=== PATIENT | male | born 1975 | race Caucasian/White ===

== ENCOUNTER 2018-04-11 18:41 | Emergency (ER) | payer OTHER ==
[2018-04-11 19:46] LABS: Absolute Monocytes 0.5 K/uL (0.1-1.3); Absolute Neutrophil 4.7 K/uL (1.8-8.0); Eosinophils % 1.7 % (0-4.4); Hematocrit 45.6 % (39.6-49.0); Lymphocytes % 26.4 % (15.3-44.8); MCH 30.3 pg (27.0-35.0); MCV 86.5 fL (80-100); MPV 8.4 fL (7.6-11.3); Monocytes % 7.3 % (3.3-12.3); RBC Red Blood Cell Count 5.27 M/uL (4.33-5.43)
[2018-04-11 20:02] LABS: Albumin 4.2 g/dL (3.4-5.0); Bilirubin Direct 0.2 mg/dL (0-0.2); Bilirubin Total 0.6 mg/dL (0.2-1.0); Protein, Total 7.8 g/dL (6.4-8.2)
[2018-04-11] MEDS ORDERED: KETOROLAC 30 MG/ML INJ ONE (20:26)
[2018-04-11] MEDS ORDERED: NA CHLORIDE 0.9% 1,000 ML ONE (20:26)
--- NOTE | 2018-04-11 20:41 | RAD REPORT ---
EXAM DESCRIPTION: CTAbdomen Pelvis W Contrast - 04/11/2018 8:18 pm CLINICAL HISTORY: Abdominal pain. IV contrast only;Abd pain COMPARISON: No comparisons TECHNIQUE: Biphasic CT imaging of the abdomen and pelvis was performed with 100 ml non-ionic IV cont rast. All CT scans are performed using dose optimization technique as appropriate and may include automated exposure control or mA/KV adjustment according to patient size. FINDINGS: The lung bases are clear. The liver contains several low-density lesions, probably cysts but difficult to fully characterize. T he spleen, pancreas, adrenal glands and kidneys are within normal limits. No bowel obstruction, free air, free fluid or abscess. The appendix is normal. No evidence of signi ficant lymphadenopathy. No suspicious bony findings. IMPRESSION: No acute intra-abdominal or pelvic finding.
--- NOTE | 2018-04-11 20:59 | ER ---
Nurse's Notes [facility] Name: Jv Case Age: 42 yrs Sex: Male : 1975 Arrival Date: 04/11/2018 Time: 18:42 Bed 13 Private MD: Diagnosis: Upper abdominal pain, unspecified Presentation: 04/11 18:48 Presenting complaint: Patient states: Nausea, diarrhea, epigastric pain that wraps aj1 around to his back and into his right shoulder for the past 4 months, but it has gotten worse over the past 2 days. States that he had a HIDA scan done and it was negative. Denies vomiting, fever. Transition of care: patient was not received from another setting of care. Onset of symptoms was April 09, 2018. Risk Assessment: Do you want to hurt yourself or someone else? Patient reports no desire to harm self or others. Initial Sepsis Screen: Does the patient meet any 2 criteria? No. Patient's initial sepsis screen is negative. Does the patient have a suspected source of infection? Yes: Acute abdominal pain. Care prior to arrival: None. 18:48 Method Of Arrival: Ambulatory aj1 18:48 Acuity: MANUEL 3 aj1 Triage Assessment: 18:52 General: Appears in no apparent distress. uncomfortable, Behavior is calm, cooperative, aj1 appropriate for age. Pain: Complains of pain in diaphragm, right lateral anterior chest, epigastric area and right upper quadrant Pain currently is 7 out of 10 on a pain scale. Neuro: Level of Consciousness is awake, alert, obeys commands. Cardiovascular: Patient's skin is warm and dry. Respiratory: Airway is patent Respiratory effort is even, unlabored, Respiratory pattern is regular, symmetrical. Historical: - Allergies: 18:52 No Known Allergies; aj1 - Home Meds: 18:52 None [Active]; aj1 - PMHx: 18:52 None; aj1 - PSHx: 18:52 None; aj1 - Immunization history:: Flu vaccine is not up to date. - Social history:: Smoking status: Patient/guardian denies using tobacco. - Ebola Screening: : Patient denies travel to an Ebola-affected area in the 21 days before illness onset. Screenin:42 Abuse screen: Denies threats or abuse. Nutritional screening: No deficits noted. jb4 Tuberculosis screening: No symptoms or risk factors identified. Fall Risk None identified. Assessment: 19:42 General: Appears in no apparent distress. uncomfortable, Behavior is calm, cooperative, jb4 appropriate for age. Pain: Complains of pain in right upper quadrant Pain radiates to right mid back Pain currently is 7 out of 10 on a pain scale. Quality of pain is described as aching. Neuro: Level of Consciousness is awake, alert, obeys commands, Oriented to person, place, time, situation. Cardiovascular: Patient's skin is warm and dry. Respiratory: Airway is patent Respiratory effort is even, unlabored, Respiratory pattern is regular, symmetrical. GI: Bowel sounds present X 4 quads. Abd is soft X 4 quads Abd is non tender in right upper quadrant, left upper quadrant, right lower quadrant and left lower quadrant Abdomen is tender to palpation in epigastric area. : No signs and/or symptoms were reported regarding the genitourinary system. EENT: No signs and/or symptoms were reported regarding the EENT system. Derm: Skin is intact, Skin is pink, warm \T\ dry. Musculoskeletal: Circulation, motion, and sensation intact. 20:48 Reassessment: Patient appears in no apparent distress at this time. Patient and/or jb4 family updated on plan of care and expected duration. Pain level reassessed. Patient is alert, oriented x 3, equal unlabored respirations, skin warm/dry/pink. 21:20 Reassessment: Patient appears in no apparent distress at this time. Patient and/or jb4 family updated on plan of care and expected duration. Pain level reassessed. Patient is alert, oriented x 3, equal unlabored respirations, skin warm/dry/pink. Discussed D/c, F/u with pt, denies questions or concerns. Vital Signs: 18:52 BP 163 / 99; Pulse 96; Resp 18; Temp 97.7; Pulse Ox 96% on R/A; Weight 104.33 kg (R); aj1 Height 6 ft. 1 in. (185.42 cm) (R); 19:51 BP 146 / 96; Pulse 77; Resp 16; Pulse Ox 96% on R/A; Pain 7/10; jb4 20:48 BP 138 / 98; Pulse 70; Resp 16; Pulse Ox 96% on R/A; jb4 18:52 Body Mass Index 30.34 (104.33 kg, 185.42 cm) aj1 ED Course: 18:42 Patient arrived in ED. sb2 18:52 Triage completed. aj1 18:52 Arm band placed on. aj1 18:55 Angelia Hartman FNP-C is [facility]. kb 18:55 Papa Troy MD is Attending Physician. kb 19:35 Initial lab(s) drawn, by ms, sent to lab. Inserted saline lock: 22 gauge in left jb4 antecubital area, using aseptic technique. Blood collected. Missed attempt(s): 20 gauge in right antecubital area. 19:42 Lalo Goldsmith, RN is Primary Nurse. jb4 19:42 Patient has correct armband on for positive identification. Bed in low position. Call jb4 light in reach. Side rails up X 1. Pulse ox on. NIBP on. 20:18 CT Abd/Pelvis - W/Contrast In Process Unspecified. EDMS 21:20 No provider procedures requiring assistance completed. IV discontinued, intact, jb4 bleeding controlled. Administered Medications: 20:38 Drug: NS 0.9% 1000 ml Route: IV; Rate: 1000 ml; Site: left antecubital; jb4 21:20 Follow up: Response: No adverse reaction; IV Status: Completed infusion jb4 20:38 Drug: TORadol 30 mg Route: IVP; Site: left antecubital; jb4 21:20 Follow up: Response: No adverse reaction; Pain is decreased jb4 Outcome: 20:58 Discharge ordered by . kb 21:20 Discharged to home ambulatory. jb4 21:20 Condition: stable 21:20 Discharge instructions given to patient, family, Instructed on discharge instructions, follow up and referral plans. medication usage, Demonstrated understanding of instructions, follow-up care, medications, Prescriptions given X 2. 21:29 Patient left the ED. jb4 Signatures: Dispatcher [employer] EDMS Angelia Hartman FNP-C FNP-Ckb Johnson, Angela RN RN aj1 Lalo Goldsmith, RN RN jb4 Betty Carlson sb2
--- NOTE | 2018-04-11 21:00 | EDPHYS ---
Physician Documentation [facility] Name: Jv Case Age: 42 yrs Sex: Male : 1975 Arrival Date: 04/11/2018 Time: 18:42 Bed 13 Private MD: ED Physician Papa Troy HPI: 04/11 19:46 This 42 yrs old Male presents to ER via Ambulatory with complaints of kb Abdominal Pain. 19:46 The patient presents with abdominal pain in the epigastric area, in the right upper kb quadrant. Onset: The symptoms/episode began/occurred yesterday. The symptoms radiate to right back, the right shoulder. Associated signs and symptoms: Pertinent positives: diarrhea. The symptoms are described as waxing/waning. Modifying factors: The symptoms are alleviated by nothing, the symptoms are aggravated by food. Severity of pain: At its worst the pain was severe in the emergency department the pain has improved moderately. The patient has experienced similar episodes in the past, several times. The patient has not recently seen a physician. Historical: - Allergies: 18:52 No Known Allergies; aj1 - Home Meds: 18:52 None [Active]; aj1 - PMHx: 18:52 None; aj1 - PSHx: 18:52 None; aj1 - Immunization history:: Flu vaccine is not up to date. - Social history:: Smoking status: Patient/guardian denies using tobacco. - Ebola Screening: : Patient denies travel to an Ebola-affected area in the 21 days before illness onset. ROS: 19:45 Constitutional: Negative for fever, chills, and weight loss, Cardiovascular: Negative kb for chest pain, palpitations, and edema, Respiratory: Negative for shortness of breath, cough, wheezing, and pleuritic chest pain, Back: Negative for injury and pain, : Negative for injury, bleeding, discharge, and swelling, MS/Extremity: Negative for injury and deformity, Skin: Negative for injury, rash, and discoloration, Neuro: Negative for headache, weakness, numbness, tingling, and seizure. 19:45 Abdomen/GI: Positive for abdominal pain, diarrhea, Negative for nausea and vomiting. Exam: 19:45 Constitutional: This is a well developed, well nourished patient who is awake, alert, kb and in no acute distress. Head/Face: Normocephalic, atraumatic. ENT: Nares patent. No nasal discharge, no septal abnormalities noted. Tympanic membranes are normal and external auditory canals are clear. Oropharynx with no redness, swelling, or masses, exudates, or evidence of obstruction, uvula midline. Mucous membranes moist. Neck: Trachea midline, no thyromegaly or masses palpated, and no cervical lymphadenopathy. Supple, full range of motion without nuchal rigidity, or vertebral point tenderness. No Meningismus. Chest/axilla: Normal chest wall appearance and motion. Nontender with no deformity. No lesions are appreciated. Cardiovascular: Regular rate and rhythm with a normal S1 and S2. No gallops, murmurs, or rubs. Normal PMI, no JVD. No pulse deficits. Respiratory: Lungs have equal breath sounds bilaterally, clear to auscultation and percussion. No rales, rhonchi or wheezes noted. No increased work of breathing, no retractions or nasal flaring. Back: No spinal tenderness. No costovertebral tenderness. Full range of motion. Skin: Warm, dry with normal turgor. Normal color with no rashes, no lesions, and no evidence of cellulitis. MS/ Extremity: Pulses equal, no cyanosis. Neurovascular intact. Full, normal range of motion. Neuro: Awake and alert, GCS 15, oriented to person, place, time, and situation. Cranial nerves II-XII grossly intact. Motor strength 5/5 in all extremities. Sensory grossly intact. Cerebellar exam normal. Normal gait. 19:45 Abdomen/GI: Inspection: abdomen appears normal, Bowel sounds: normal, in all quadrants, Palpation: soft, in all quadrants, mild abdominal tenderness, in the epigastric area. Vital Signs: 18:52 BP 163 / 99; Pulse 96; Resp 18; Temp 97.7; Pulse Ox 96% on R/A; Weight 104.33 kg (R); aj1 Height 6 ft. 1 in. (185.42 cm) (R); 19:51 BP 146 / 96; Pulse 77; Resp 16; Pulse Ox 96% on R/A; Pain 7/10; jb4 20:48 BP 138 / 98; Pulse 70; Resp 16; Pulse Ox 96% on R/A; jb4 18:52 Body Mass Index 30.34 (104.33 kg, 185.42 cm) aj1 MDM: 18:56 Patient medically screened. kb 19:45 Data reviewed: vital signs, nurses notes. Data interpreted: Pulse oximetry: on room air kb is 96 %. Interpretation: normal. 20:47 Counseling: I had a detailed discussion with the patient and/or guardian regarding: the kb historical points, exam findings, and any diagnostic results supporting the discharge/admit diagnosis, lab results, radiology results, the need for outpatient follow up, a family practitioner, a clay preparation supervisor, to return to the emergency department if symptoms worsen or persist or if there are any questions or concerns that arise at home. 04/11 19:10 Order name: Basic Metabolic Panel; Complete Time: 20:06 [email or web address] 04/11 19:10 Order name: CBC with Diff; Complete Time: 19:48 [email or web address] 04/11 19:10 Order name: Hepatic Function; Complete Time: 20:06 [email or web address] 04/11 19:10 Order name: Lipase; Complete Time: 20:06 [email or web address] 04/11 19:58 Order name: CT Abd/Pelvis - W/Contrast; Complete Time: 20:47 kb 04/11 19:10 Order name: IV Saline Lock; Complete Time: 19:42 [email or web address] 04/11 19:10 Order name: Labs collected and sent; Complete Time: 19:42 ak Administered Medications: 20:38 Drug: NS 0.9% 1000 ml Route: IV; Rate: 1000 ml; Site: left antecubital; [facility] 21:20 Follow up: Response: No adverse reaction; IV Status: Completed infusion jb4 20:38 Drug: TORadol 30 mg Route: IVP; Site: left antecubital; 4 21:20 Follow up: Response: No adverse reaction; Pain is decreased jb4 Disposition: 04/11/18 20:58 Discharged to Home. Impression: Upper abdominal pain, unspecified. - Condition is Stable. - Discharge Instructions: Abdominal Pain, Adult, Lgaw-we-Fiss. - Prescriptions for Bentyl 20 mg Oral Tablet - take 1 tablet by ORAL route every 6 hours As needed; 20 tablet. Zofran 4 mg Oral Tablet - take 1 tablet by ORAL route every 6 hours As needed; 20 tablet. - Medication Reconciliation Form, Thank You Letter, Antibiotic Education, Prescription Opioid Use form. - Follow up: Emergency Department; When: As needed; Reason: Worsening of condition. Follow up: Private Physician; When: 2 - 3 days; Reason: Recheck today's complaints, Continuance of care, Re-evaluation by your physician. Addendum: 04/16/2018 08:05 Co-signature as Attending Physician, Papa Troy MD I agree with the assessment and c onofre plan of care. Signatures: Dispatcher [employer] EDMS Angelia Hartman, BEDSPREAD INSPECTOR-C BEDSPREAD INSPECTOR-Ckb Mariah Gale, RN RN aj1 Papa Troy MD MD cha Krenek, Amber RN RN ak1 Lalo Goldsmith RN RN jb4 Corrections: (The following items were deleted from the chart) 04/11 21:29 20:58 04/11/2018 20:58 Discharged to Home. Impression: Upper abdominal pain, jb4 unspecified. Condition is Stable. Forms are Medication Reconciliation Form, Thank You Letter, Antibiotic Education, Prescription Opioid Use. Follow up: Emergency Department; When: As needed; Reason: Worsening of condition. Follow up: Private Physician; When: 2 - 3 days; Reason: Recheck today's complaints, Continuance of care, Re-evaluation by your physician. kb
== END 2018-04-11 21:29 | disposition home or self-care (01) ==
LOC: ER 18:41
DX: R10.10 Upper abdominal pain, unspecified (principal)
CPT/HCPCS: 36415; 74177; 80048; 80076; 83690; 85025; 96361; 96374; 99284; J7030; Q9967

== ENCOUNTER 2018-09-16 19:07 | Emergency (ER) | payer OTHER ==
[2018-09-16] MEDS ORDERED: AZITHROMYCIN 250 MG TAB ONE (19:57)
--- NOTE | 2018-09-16 19:57 | ER ---
Nurse's Notes [facility] Name: Jv Case Age: 42 yrs Sex: Male : 1975 Arrival Date: 09/16/2018 Time: 19:08 Bed 24 Private MD: Will Rajput R Diagnosis: Fever, unspecified;Malaise and fatigue;Acute pharyngitis;Streptococcal tonsillitis;Streptococcal pharyngitis Presentation: 09/16 19:13 Presenting complaint: Patient states: I have been having body aches, a sore throat, and la1 chills and a sore throat since last night. Transition of care: patient was not received from another setting of care. Onset of symptoms was September 16, 2018. Risk Assessment: Do you want to hurt yourself or someone else? Patient reports no desire to harm self or others. Initial Sepsis Screen: Does the patient meet any 2 criteria? No. Patient's initial sepsis screen is negative. Does the patient have a suspected source of infection? No. Patient's initial sepsis screen is negative. Care prior to arrival: None. 19:13 Method Of Arrival: Ambulatory la1 19:13 Acuity: MANUEL 4 la1 Historical: - Allergies: 19:13 No Known Allergies; la1 - PMHx: 19:13 None; la1 - Immunization history:: Adult Immunizations up to date. - Social history:: Smoking status: Patient/guardian denies using tobacco. - Ebola Screening: : No symptoms or risks identified at this time. - Family history:: not pertinent. Screenin:18 Abuse screen: Denies threats or abuse. Denies injuries from another. Nutritional mg2 screening: No deficits noted. Tuberculosis screening: No symptoms or risk factors identified. Fall Risk None identified. Assessment: 19:24 General: Appears in no apparent distress. comfortable, Behavior is calm, cooperative. mg2 Pain: Complains of pain in throat Pain does not radiate. Pain currently is 4 out of 10 on a pain scale. Quality of pain is described as aching, Pain began gradually, last night Is intermittent. Neuro: Level of Consciousness is awake, alert, obeys commands, Oriented to person, place, time, situation. Neuro: Reports headache in entire. Cardiovascular: Capillary refill < 3 seconds Patient's skin is warm and dry. Respiratory: Airway is patent Respiratory effort is even, unlabored, Breath sounds are clear. GI: No deficits noted. : No deficits noted. EENT: Throat is reddened. Derm: Skin is intact, is healthy with good turgor, Skin is pink, warm \T\ dry. normal. Musculoskeletal: Circulation, motion, and sensation intact. Capillary refill < 3 seconds. Vital Signs: 19:14 BP 150 / 100; Pulse 92; Resp 16; Temp 99.8; Pulse Ox 98% on R/A; Weight 102.06 kg; la1 Height 6 ft. 1 in. (185.42 cm); 19:27 Temp 98.5(O); mg2 20:22 BP 140 / 92; Pulse 90; Resp 18; Pulse Ox 100% on R/A; mg2 19:14 Body Mass Index 29.68 (102.06 kg, 185.42 cm) la1 ED Course: 19:08 Patient arrived in ED. am2 19:08 Will Rajput MD is Private Physician. am2 19:13 Triage completed. la1 19:14 Arm band placed on right wrist. la1 19:15 Miles Galvez, LOY is Primary Nurse. mg2 19:15 Papa Troy MD is Attending Physician. armando 19:18 Patient has correct armband on for positive identification. Bed in low position. Call mg2 light in reach. Side rails up X 1. Pulse ox on. NIBP on. 19:19 No provider procedures requiring assistance completed. mg2 19:56 Will Rajput MD is Referral Physician. armando 20:22 Patient did not have IV access during this emergency room visit. mg2 Administered Medications: 19:48 Drug: Motrin 600 mg Route: PO; mg2 20:22 Follow up: Response: No adverse reaction; Marked relief of symptoms mg2 19:48 Drug: Zithromax 500 mg Route: PO; mg2 20:21 Follow up: Response: No adverse reaction mg2 Outcome: 19:56 Discharge ordered by . armando 20:22 Discharged to home ambulatory. mg2 20:22 Condition: stable 20:22 Discharge instructions given to patient, Instructed on discharge instructions, follow up and referral plans. medication usage, Demonstrated understanding of instructions, follow-up care, medications, Prescriptions given X 1. 20:23 Patient left the ED. mg2 Signatures: Papa Troy MD MD cha Attema Marvin, RN RN la1 Alize Palma am2 Miles Galvez, RN RN mg2
--- NOTE | 2018-09-16 19:57 | EDPHYS ---
Physician Documentation [facility] Name: Jv Case Age: 42 yrs Sex: Male : 1975 Arrival Date: 09/16/2018 Time: 19:08 Bed 24 Private MD: Will Rajput R ED Physician Papa Troy HPI: 09/16 19:40 This 42 yrs old Male presents to ER via Ambulatory with complaints of Cold armando sweats, Sore Throat, Headache. 19:40 The patient presents with sore throat. The patient describes throat pain as burning. armando Onset: The symptoms/episode began/occurred today. Severity of symptoms: At their worst the symptoms were mild, in the emergency department the symptoms are unchanged. Modifying factors: The symptoms are alleviated by nothing, the symptoms are aggravated by nothing. Associated signs and symptoms: The patient has no apparent associated signs or symptoms. The patient has not experienced similar symptoms in the past. Historical: - Allergies: 19:13 No Known Allergies; la1 - PMHx: 19:13 None; la1 - Immunization history:: Adult Immunizations up to date. - Social history:: Smoking status: Patient/guardian denies using tobacco. - Ebola Screening: : No symptoms or risks identified at this time. - Family history:: not pertinent. ROS: 19:40 Constitutional: Negative for fever, chills, and weight loss, Eyes: Negative for injury, armando pain, redness, and discharge, Neck: Negative for injury, pain, and swelling, Cardiovascular: Negative for chest pain, palpitations, and edema, Respiratory: Negative for shortness of breath, cough, wheezing, and pleuritic chest pain, Abdomen/GI: Negative for abdominal pain, nausea, vomiting, diarrhea, and constipation, Back: Negative for injury and pain, : Negative for injury, bleeding, discharge, and swelling, MS/Extremity: Negative for injury and deformity, Skin: Negative for injury, rash, and discoloration, Neuro: Negative for headache, weakness, numbness, tingling, and seizure, Psych: Negative for depression, anxiety, suicide ideation, homicidal ideation, and hallucinations, Allergy/Immunology: Negative for hives, rash, and allergies, Endocrine: Negative for neck swelling, polydipsia, polyuria, polyphagia, and marked weight changes, Hematologic/Lymphatic: Negative for swollen nodes, abnormal bleeding, and unusual bruising. 19:40 Constitutional: Positive for fever, malaise. 19:40 ENT: Positive for difficulty swallowing, sinus pain. Exam: 19:40 Constitutional: This is a well developed, well nourished patient who is awake, alert, armando and in no acute distress. Head/Face: Normocephalic, atraumatic. Eyes: Pupils equal round and reactive to light, extra-ocular motions intact. Lids and lashes normal. Conjunctiva and sclera are non-icteric and not injected. Cornea within normal limits. Periorbital areas with no swelling, redness, or edema. Neck: Trachea midline, no thyromegaly or masses palpated, and no cervical lymphadenopathy. Supple, full range of motion without nuchal rigidity, or vertebral point tenderness. No Meningismus. Chest/axilla: Normal chest wall appearance and motion. Nontender with no deformity. No lesions are appreciated. Cardiovascular: Regular rate and rhythm with a normal S1 and S2. No gallops, murmurs, or rubs. Normal PMI, no JVD. No pulse deficits. Respiratory: Lungs have equal breath sounds bilaterally, clear to auscultation and percussion. No rales, rhonchi or wheezes noted. No increased work of breathing, no retractions or nasal flaring. Abdomen/GI: Soft, non-tender, with normal bowel sounds. No distension or tympany. No guarding or rebound. No evidence of tenderness throughout. Back: No spinal tenderness. No costovertebral tenderness. Full range of motion. Male : Normal genitalia with no discharge or lesions. Skin: Warm, dry with normal turgor. Normal color with no rashes, no lesions, and no evidence of cellulitis. MS/ Extremity: Pulses equal, no cyanosis. Neurovascular intact. Full, normal range of motion. Neuro: Awake and alert, GCS 15, oriented to person, place, time, and situation. Cranial nerves II-XII grossly intact. Motor strength 5/5 in all extremities. Sensory grossly intact. Cerebellar exam normal. Normal gait. Psych: Awake, alert, with orientation to person, place and time. Behavior, mood, and affect are within normal limits. 19:40 ENT: Posterior pharynx: Airway: normal, no evidence of obstruction, Tonsils: with erythema, Uvula: normal, swelling, is not appreciated, erythema, is not appreciated, that is mild. Vital Signs: 19:14 BP 150 / 100; Pulse 92; Resp 16; Temp 99.8; Pulse Ox 98% on R/A; Weight 102.06 kg; la1 Height 6 ft. 1 in. (185.42 cm); 19:27 Temp 98.5(O); mg2 20:22 BP 140 / 92; Pulse 90; Resp 18; Pulse Ox 100% on R/A; mg2 19:14 Body Mass Index 29.68 (102.06 kg, 185.42 cm) la1 MDM: 19:15 Patient medically screened. [facility] 19:45 Data reviewed: vital signs, nurses notes, lab test result(s). [facility] 09/16 19:24 Order name: Strep; Complete Time: 19:55 mg2 09/16 19:26 Order name: Flu; Complete Time: 19:55 mg2 Administered Medications: 19:48 Drug: Motrin 600 mg Route: PO; mg2 20:22 Follow up: Response: No adverse reaction; Marked relief of symptoms mg2 19:48 Drug: Zithromax 500 mg Route: PO; mg2 20:21 Follow up: Response: No adverse reaction mg2 Disposition: 09/16/18 19:56 Discharged to Home. Impression: Fever, unspecified, Malaise and fatigue, Acute pharyngitis, Streptococcal tonsillitis, Streptococcal pharyngitis. - Condition is Stable. - Discharge Instructions: Fever, Adult, Pharyngitis, Strep Throat, Weakness, Pharyngitis, [id number]-qc-[id number], Weakness, Xudu-oa-Vkqv, Sore Throat, Ojxs-ff-Npkw. - Prescriptions for Zithromax 500 mg Oral Tablet - take 1 tablet by ORAL route once daily for 4 days; 4 tablet. - Medication Reconciliation Form, Thank You Letter, Antibiotic Education, Prescription Opioid Use, Work release form form. - Follow up: Will Rajput; When: 2 - 3 days; Reason: Recheck today's complaints, Continuance of care, Re-evaluation by your physician. - Problem is new. - Symptoms have improved. Signatures: Dispatcher [employer] EDMS Papa Troy MD MD cha Attema, Lee RN RN la1 Miles Galvez RN RN mg2 Corrections: (The following items were deleted from the chart) 20:23 19:56 09/16/2018 19:56 Discharged to Home. Impression: Fever, unspecified; Malaise and mg2 fatigue; Acute pharyngitis; Streptococcal tonsillitis; Streptococcal pharyngitis. Condition is Stable. Discharge Instructions: Fever, Adult, Pharyngitis, Weakness, Pharyngitis, Vzkt-yc-Lwlw, Weakness, Owpd-gr-Nihl, Sore Throat, Noyk-lu-Vamd. Prescriptions for Zithromax 500 mg Oral Tablet - take 1 tablet by ORAL route once daily for 4 days; 4 tablet. and Forms are Medication Reconciliation Form, Thank You Letter, Antibiotic Education, Prescription Opioid Use. Follow up: Will Rajput; When: 2 - 3 days; Reason: Recheck today's complaints, Continuance of care, Re-evaluation by your physician. Problem is new. Symptoms have improved. armando
[2018-09-16] MEDS ORDERED: IBUPROFEN 200 MG TAB PO ONE (19:58)
== END 2018-09-16 20:23 | disposition home or self-care (01) ==
LOC: ER 19:07
DX: J03.00 Acute streptococcal tonsillitis, unspecified (principal); R53.81 Other malaise; R53.83 Other fatigue
CPT/HCPCS: 87081; 87804

== ENCOUNTER 2018-11-16 21:18 | Emergency (ER) | payer OTHER ==
[2018-11-16] MEDS ORDERED: KETOROLAC 30 MG/ML INJ ONE (22:15)
[2018-11-16 22:23] LABS: Absolute Lymphocytes (CBC) 1.8 K/uL (0.7-4.9); Eosinophils % 2.5 % (0-4.4); Hematocrit 44.1 % (39.6-49.0); Lymphocytes % 30.6 % (15.3-44.8); MPV 8.6 fL (7.6-11.3); Monocytes % 7.3 % (3.3-12.3); RBC Red Blood Cell Count 5.04 M/uL (4.33-5.43)
[2018-11-16 22:38] LABS: Bilirubin Total 0.6 mg/dL (0.2-1.0); Potassium 3.7 mmol/L (3.5-5.1); Protein, Total 7.4 g/dL (6.4-8.2)
--- NOTE | 2018-11-16 22:38 | RAD REPORT ---
EXAM DESCRIPTION: US - Abdomen Exam Limited - 11/16/2018 10:19 pm CLINICAL HISTORY: Abdominal pain. COMPARISON: 07/2017 FINDINGS: The patient had recently eaten limiting evaluation. Gallbladder is contracted. A gallstone is not visualized The biliary tree is normal caliber. IMPRESSION: Grossly normal gallbladder ultrasound
--- NOTE | 2018-11-17 00:28 | ER ---
Nurse's Notes [facility] Name: Jv Case Age: 43 yrs Sex: Male : 1975 Arrival Date: 11/16/2018 Time: 21:20 Bed 6 Private MD: Will Rajput R Diagnosis: Abdominal pain Presentation: 11/16 21:35 Presenting complaint: Patient states: epigastric pain on right side that radiates to tl2 back x 3 days, gets worse after eating. Had similar episode last year, diagnosed with "fatty gallbladder" by Dr. Cantu. Transition of care: patient was not received from another setting of care. Onset of symptoms was November 13, 2018. Risk Assessment: Do you want to hurt yourself or someone else? Patient reports no desire to harm self or others. Initial Sepsis Screen: Does the patient meet any 2 criteria? No. Patient's initial sepsis screen is negative. Does the patient have a suspected source of infection? No. Patient's initial sepsis screen is negative. Care prior to arrival: None. 21:35 Method Of Arrival: Ambulatory tl2 21:35 Acuity: MANUEL 3 tl2 Triage Assessment: 21:36 General: Appears in no apparent distress. uncomfortable, Behavior is calm, cooperative, tl2 appropriate for age. Pain: Complains of pain in epigastric area Pain radiates to anterior aspect of right lateral abdomen. Neuro: Level of Consciousness is awake, alert, obeys commands, Oriented to person, place, time, situation. Cardiovascular: Denies chest pain. Respiratory: Airway is patent Respiratory effort is even, unlabored, Respiratory pattern is regular, symmetrical. GI: Abd is soft Abdomen is tender to palpation in right upper quadrant Reports upper abdominal pain. Derm: Skin is pink, warm \\T\\ dry. Historical: - Allergies: 21:36 No Known Allergies; tl2 - Home Meds: 21:36 None [Active]; tl2 - PMHx: 21:36 None; tl2 - PSHx: 21:36 None; tl2 - Immunization history:: Adult Immunizations up to date. - Social history:: Smoking status: Patient/guardian denies using tobacco. - Ebola Screening: : No symptoms or risks identified at this time. Screenin:38 Abuse screen: Denies threats or abuse. Nutritional screening: No deficits noted. tl2 Tuberculosis screening: No symptoms or risk factors identified. Fall Risk None identified. Assessment: 21:38 General: see triage assessment. tl2 22:30 Reassessment: Patient appears in no apparent distress at this time. Patient and/or tl2 family updated on plan of care and expected duration. Pain level reassessed. Patient is alert, oriented x 3, equal unlabored respirations, skin warm/dry/pink. pt states pain has improved. 11/17 00:00 Reassessment: Patient appears in no apparent distress at this time. Patient and/or tl2 family updated on plan of care and expected duration. Pain level reassessed. Patient is alert, oriented x 3, equal unlabored respirations, skin warm/dry/pink. 00:59 Reassessment: Patient appears in no apparent distress at this time. Patient and/or tl2 family updated on plan of care and expected duration. Pain level reassessed. Patient is alert, oriented x 3, equal unlabored respirations, skin warm/dry/pink. pt verbalized understanding of discharge instructions, need for follow up and prescription usage Patient states feeling better. Vital Signs: 11/16 21:30 BP 146 / 100; Pulse 80; Temp 98.0; Pulse Ox 99% ; Weight 104.33 kg (R); Height 6 ft. 1 jp3 in. (185.42 cm) (R); Pain 4/10; 22:22 BP 135 / 100; Pulse 69; Resp 18; Pulse Ox 98% on R/A; tl2 11/17 00:59 BP 137 / 103; Pulse 70; Resp 18; Pulse Ox 97% on R/A; Pain 1/10; tl2 11/16 21:30 Body Mass Index 30.34 (104.33 kg, 185.42 cm) jp3 ED Course: 11/16 21:20 Patient arrived in ED. as 21:21 Will Rajput MD is Private Physician. as 21:22 Brad Villafuerte MD is Attending Physician. ps1 21:32 Bed in low position. Call light in reach. Side rails up X 1. Verbal reassurance given. jp3 Pulse ox on. NIBP on. 21:36 Triage completed. tl2 21:36 Arm band placed on right wrist. tl2 21:50 Inserted saline lock: 20 gauge in right antecubital area, using aseptic technique. tl2 Blood collected. 22:18 US Abdomen Limited In Process Unspecified. EDMS 22:20 Ultrasound completed. Patient tolerated well. sg3 22:22 Mally Rosenberg, RN is Primary Nurse. tl2 11/17 00:08 CT Abd/Pelvis - Without Contrast In Process Unspecified. EDMS 00:25 Will Rajput MD is Referral Physician. ps1 00:59 No provider procedures requiring assistance completed. IV discontinued, intact, tl2 bleeding controlled, No redness/swelling at site. Pressure dressing applied. Administered Medications: 11/16 22:10 Drug: TORadol 30 mg Route: IVP; Site: right antecubital; tl2 23:00 Follow up: Response: No adverse reaction; Pain is decreased tl2 11/17 00:46 Drug: GI Cocktail without - (Maalox Suspension 30 ml, Lidocaine Liquid 2 % 15 tl2 ml) Route: PO; 01:00 Follow up: Response: No adverse reaction tl2 Outcome: 00:25 Discharge ordered by MD. ps1 00:59 Discharged to home ambulatory. tl2 00:59 Condition: stable 00:59 Discharge instructions given to patient, Instructed on discharge instructions, follow up and referral plans. medication usage, Demonstrated understanding of instructions, follow-up care, medications, Prescriptions given X 4. 01:00 Patient left the ED. tl2 Signatures: Dispatcher [employer] NATHANMS Luisa Pardo Taylor, RN RN tl2 Brad Villafuerte MD MD ps1 Kortney Mitchell sg3 Tesfaye Somers 3
--- NOTE | 2018-11-17 00:29 | EDPHYS ---
Physician Documentation [facility] Name: Jv Case Age: 43 yrs Sex: Male : 1975 Arrival Date: 11/16/2018 Time: 21:20 Bed 6 Private MD: Will Rajput R ED Physician Brad Villafuerte HPI: 11/17 00:22 This 43 yrs old Male presents to ER via Ambulatory with complaints of ps1 Epigastric Pain, Back Pain. 00:22 patient states that he has had RUQ/flank pain for two weeks. Tonight he ate some ps1 chickfila and his pain got worse. Pain rated as moderate. No fever. No medical history otherwise. No urinary symptoms. Historical: - Allergies: 11/16 21:36 No Known Allergies; tl2 - Home Meds: 21:36 None [Active]; tl2 - PMHx: 21:36 None; tl2 - PSHx: 21:36 None; tl2 - Immunization history:: Adult Immunizations up to date. - Social history:: Smoking status: Patient/guardian denies using tobacco. - Ebola Screening: : No symptoms or risks identified at this time. ROS: 11/17 00:22 Constitutional: Negative for fever, chills, and weight loss, Eyes: Negative for injury, ps1 pain, redness, and discharge, ENT: Negative for injury, pain, and discharge, Cardiovascular: Negative for chest pain, palpitations, and edema, Respiratory: Negative for shortness of breath, cough, wheezing, and pleuritic chest pain, MS/Extremity: Negative for injury and deformity, Skin: Negative for injury, rash, and discoloration, Neuro: Negative for headache, weakness, numbness, tingling, and seizure. Abdomen/GI: Positive for abdominal pain. Exam: 00:22 Constitutional: This is a well developed, well nourished patient who is awake, alert, ps1 and in no acute distress. Head/Face: Normocephalic, atraumatic. Eyes: Pupils equal round and reactive to light, extra-ocular motions intact. Lids and lashes normal. Conjunctiva and sclera are non-icteric and not injected. Chest/axilla: Normal chest wall appearance and motion. Nontender with no deformity. No lesions are appreciated. Cardiovascular: Regular rate and rhythm. No gallops, murmurs, or rubs. Normal PMI, no JVD. No pulse deficits. Respiratory: Lungs have equal breath sounds bilaterally, clear to auscultation and percussion. No rales, rhonchi or wheezes noted. No increased work of breathing, no retractions or nasal flaring. Skin: Warm, dry with normal turgor. Normal color with no rashes, no lesions, and no evidence of cellulitis. MS/ Extremity: Pulses equal, no cyanosis. Neurovascular intact. Full, normal range of motion. Neuro: Awake and alert, GCS 15, oriented to person, place, time, and situation. Cranial nerves II-XII grossly intact. Sensory grossly intact. 00:22 Abdomen/GI: Inspection: abdomen appears normal, Bowel sounds: normal, Palpation: moderate abdominal tenderness, in the right upper quadrant. Vital Signs: 11/16 21:30 BP 146 / 100; Pulse 80; Temp 98.0; Pulse Ox 99% ; Weight 104.33 kg (R); Height 6 ft. 1 jp3 in. (185.42 cm) (R); Pain 4/10; 22:22 BP 135 / 100; Pulse 69; Resp 18; Pulse Ox 98% on R/A; tl2 11/17 00:59 BP 137 / 103; Pulse 70; Resp 18; Pulse Ox 97% on R/A; Pain 1/10; tl2 11/16 21:30 Body Mass Index 30.34 (104.33 kg, 185.42 cm) jp3 MDM: 11/16 21:38 Patient medically screened. ps1 11/17 00:24 Data reviewed: vital signs, nurses notes, lab test result(s), radiologic studies, and ps1 as a result, I will discharge patient. Counseling: I had a detailed discussion with the patient and/or guardian regarding: the historical points, exam findings, and any diagnostic results supporting the discharge/admit diagnosis, lab results, radiology results, the need for outpatient follow up. Counseling: I had a detailed discussion with the patient and/or guardian regarding: to return to the emergency department if symptoms worsen or persist or if there are any questions or concerns that arise at home. Medical screen evaluation completed. [facility] emergency medical condition absent. 11/16 21:33 Order name: CBC with Diff; Complete Time: 23:13 ps1 11/16 21:33 Order name: Creatinine for Radiology; Complete Time: 23:13 [facility] 11/16 21:33 Order name: Lipase; Complete Time: 23:13 [facility] 11/16 21:33 Order name: CMP; Complete Time: 23:13 [facility] 11/16 21:33 Order name: US Abdomen Limited; Complete Time: 23:13 [facility] 11/16 23:05 Order name: Urine Dipstick--Ancillary (enter results) [facility] 11/16 21:33 Order name: IV Saline Lock; Complete Time: 21:51 [facility] 11/16 21:33 Order name: Labs collected and sent; Complete Time: 21:51 [facility] 11/16 21:33 Order name: Urine Dipstick-Ancillary (obtain specimen); Complete Time: 23:11 [facility] 11/16 23:15 Order name: CT Abd/Pelvis - Without Contrast ps1 Administered Medications: 11/16 22:10 Drug: TORadol 30 mg Route: IVP; Site: right antecubital; tl2 23:00 Follow up: Response: No adverse reaction; Pain is decreased tl2 11/17 00:46 Drug: GI Cocktail without - (Maalox Suspension 30 ml, Lidocaine Liquid 2 % 15 tl2 ml) Route: PO; 01:00 Follow up: Response: No adverse reaction tl2 Disposition: 11/17/18 00:25 Discharged to Home. Impression: Abdominal pain. - Condition is Stable. - Discharge Instructions: Abdominal Pain, Adult. - Prescriptions for Bentyl 10 mg Oral Capsule - take 1 capsule by ORAL route every 6 hours As needed; 40 capsule. Carafate 1 gram Oral Tablet - take 1 tablet by ORAL route 4 times per day take on an empty stomach, beginning on waking and last dose at bedtime; 100 tablet. Protonix 40 mg Oral Tablet - take 1 tablet by ORAL route once daily; 30 tablet. Zofran 4 mg Oral Tablet - take 1 tablet by ORAL route every 12 hours As needed; 20 tablet. - Medication Reconciliation Form, Thank You Letter, Antibiotic Education, Prescription Opioid Use form. - Follow up: Will Rajput MD; When: As needed; Reason: Further diagnostic work-up, Recheck today's complaints, Re-evaluation by your physician. Follow up: Emergency Department; When: As needed; Reason: Fever > 102 F, Worsening of condition. - Problem is new. - Symptoms are unchanged. Signatures: Dispatcher [employer] EDMD Mally Rosenberg RN RN tl2 Brad Villafuerte MD MD ps1 Corrections: (The following items were deleted from the chart) 00:25 00:25 11/17/2018 00:25 Discharged to Home. Impression: Abdominal pain. Condition is ps1 Stable. Forms are Medication Reconciliation Form, Thank You Letter, Antibiotic Education, Prescription Opioid Use. Follow up: Will Rajput; When: As needed; Reason: Further diagnostic work-up, Recheck today's complaints, Re-evaluation by your physician. Follow up: Emergency Department; When: As needed; Reason: Fever > 102 F, Worsening of condition. ps1 01:00 00:25 11/17/2018 00:25 Discharged to Home. Impression: Abdominal pain. Condition is tl2 Stable. Forms are Medication Reconciliation Form, Thank You Letter, Antibiotic Education, Prescription Opioid Use. Follow up: Will Rajput; When: As needed; Reason: Further diagnostic work-up, Recheck today's complaints, Re-evaluation by your physician. Follow up: Emergency Department; When: As needed; Reason: Fever > 102 F, Worsening of condition. Problem is new. Symptoms are unchanged. ps1
[2018-11-17] MEDS ORDERED: LIDOCAINE VISCOUS 2% SOLN 15 ML UDC ONE (00:49)
[2018-11-17] MEDS ORDERED: MAGNE/ALUM HYDROXD 30 ML UCUP ONE (00:49)
[2018-11-17 01:17] LABS: Urine Blood NEGATIVE (NEG); Urine Glucose NEGATIVE (NEG); Urine Protein TRACE (NEG); Urine Specific Gravity 1.025 (1.005-1.030)
--- NOTE | 2018-11-19 13:27 | RAD REPORT ---
EXAM DESCRIPTION: CT - Abdomen Pelvis Wo Contrast - 11/17/2018 2:10 am CLINICAL HISTORY: The patient is 43 years old and is Male; Right flank pain. TECHNIQUE: Axial computed tomography images of the abdomen and pelvis without intravenous contrast. Sagittal and coronal reformatted images were created and reviewed. This CT exam was performed usi ng one or more of the following dose reduction techniques: automated exposure control, adjustment o f the mA and/or kV according to patient size, and/or use of iterative reconstruction technique. COMPARISON: CT abdomen and pelvis with contrast dated April 11, 2018. FINDINGS: LUNG BASES: Calcified 7 mm right middle lobe nodule, unchanged from prior exam. ABDOMEN: LIVER: Subcentimeter hepatic dome cysts. GALLBLADDER AND BILE DUCTS: Unremarkable. No calcified stones. No ductal dilation. PANCREAS: Unremarkable. No ductal dilation. SPLEEN: Mild splenomegaly measuring 14.6 cm. ADRENALS: Unremarkable. No mass. KIDNEYS AND URETERS: Unremarkable. No obstructing stones. No hydronephrosis. STOMACH AND BOWEL: Unremarkable. No obstruction. No mucosal thickening. PELVIS: APPENDIX: The appendix is seen and is within normal limits. BLADDER: Bladder is decompressed. No stones. REPRODUCTIVE: Unremarkable as visualized. ABDOMEN and PELVIS: INTRAPERITONEAL SPACE: Unremarkable. No free air. No significant fluid collection. BONES/JOINTS: No acute fracture. No dislocation. SOFT TISSUES: Unremarkable. VASCULATURE: Unremarkable. No abdominal aortic aneurysm. LYMPH NODES: Unremarkable. No enlarged lymph nodes. IMPRESSION: 1. No acute abdominal or pelvic abnormality. No obstructive uropathy. 2. Mild splenomegaly measuring 14.6 cm. Electronically signed by: Mick Sol DO 11/17/2018 12:15 AM CDT Due to temporary technical issues with the PACS/Fluency reporting system, reports are being signed by the in house radiologist as a courtesy to ensure prompt reporting. The interpreting radiologist is f radhaly responsible for the content of the report.
== END 2018-11-17 01:00 | disposition home or self-care (01) ==
LOC: ER 21:18
DX: R10.11 Right upper quadrant pain (principal)
CPT/HCPCS: 36415; 74176; 76705; 80053; 81003; 83690; 85025; 96374; 99284